=== PATIENT | female | born 1955 | race Native Hawaiian/Other Pacific Islander ===

== ENCOUNTER 2016-09-08 11:45 | Outpatient (CLI) | payer BC ==
[~2016-09-08 11:45] MED LIST: ASPIR-LOW81 MG OR; ATEN25TA21 PO; CELEBREX200 MG PO; CLOP75TA2 PO; FURO20TA67 PO; GLIP10TA55 PO; IRON325 MG OR; LAMICTAL25 MG OR; LINZESS290 MCG OR; LYRICA50 MG OR; METFORMIN ER1000 MG PO; NICOTINE TD; PANT40TA PO; SPIR25TA66 PO
== END 2016-09-08 19:19 | disposition home or self-care (01) ==
LOC: RAD 11:45
DX: M25.562 Pain in left knee (principal)

== ENCOUNTER 2016-11-17 12:40 | Emergency (ER) | payer BC ==
[~2016-11-17] VITALS: Ht 167.6 cm; Wt 111.6 kg
[2016-11-17 13:00] VITALS: BP 138/75; TEMP 98
[2016-11-17] MEDS ORDERED: HUMALOG KWI100 MG/ML SC (13:51)
[2016-11-17] MEDS ORDERED: LANTUS100 MG/ML SC (13:51)
[2016-11-17 13:52] LABS: PLATELET COUNT 194 K/uL (152-353)
[2016-11-17] MEDS ORDERED: CETI10TA PO (13:52)
[2016-11-17] MEDS ORDERED: ONDA4TAB3 PO (13:52)
[2016-11-17] MEDS ORDERED: LACTSYP31 PO (13:53)
[2016-11-17] MEDS ORDERED: VITAMIN D31000 UNIT OR (13:53)
[2016-11-17] MEDS ORDERED: XIFAXAN550 MG OR (13:54)
[2016-11-17] MEDS ORDERED: NADOLOL20 MG OR (13:54)
[2016-11-17 14:05] LABS: PARTIAL THROMBOPLASTIN TIME 27.5 SECONDS (24.5-33.6)
[2016-11-17 14:07] LABS: POTASSIUM 3.9 mmol/L (3.6-5.2); SODIUM 130 mmol/L (136-145)
== END 2016-11-17 17:36 | disposition home or self-care (01) ==
LOC: ED 12:40 → MED/SURG 16:32 → ED 16:32
PROVIDERS: Specialist
DX: R07.89 Other chest pain (principal); K74.60 Unspecified cirrhosis of liver; I25.10 Atherosclerotic heart disease of native coronary artery without angina pectoris
CPT/HCPCS: 36415; 80053; 82140; 82550; 84484; 85027; 85610; 85730; 93005; 99284; Q9963

== ENCOUNTER 2016-11-17 17:41 | Observation (INO) | payer BC ==
[~2016-11-17] VITALS: Ht 167.6 cm; Wt 111.6 kg
[~2016-11-17 17:41] MED LIST changes: +CETI10TA PO; +HUMALOG KWI100 MG/ML SC; +LACTSYP31 PO; +LANTUS100 MG/ML SC; +NADOLOL20 MG OR; +ONDA4TAB3 PO; +VITAMIN D31000 UNIT OR; +XIFAXAN550 MG OR
[2016-11-18 03:22] VITALS: BP 118/50; TEMP 98.1; Ht 167.6 cm; Wt 111.6 kg
[2016-11-18 04:00] VITALS: BP 96/55; TEMP 97.3
[2016-11-18 08:00] VITALS: BP 123/57; TEMP 97.8
--- NOTE | 2016-11-18 10:05 | NUR ---
9231 PT DEMANDED FOR IV HL TO BE TAKEN OUT AT THIS TIME. PT STATED IT HAD HURT HER ALL NIGHT. SMALL BRUISE NOTED AT INSERTION SITE. IV REMOVED AND ROUTINE SITE CARE GIVEN. WILL RESTART AT LATER TIME
[2016-11-18 12:00] VITALS: BP 118/70; TEMP 97.9
[2016-11-18 16:00] VITALS: BP 110/68; TEMP 98.3
[2016-11-18 20:00] VITALS: BP 115/58; TEMP 97.9
--- NOTE | 2016-11-18 22:34 | NUR ---
PT STATED SHE FELT IF SHE NEEDED HER BLOOD SUGAR CHECKED. FSBS 86. GIVEN ORANGE JUICE AND CRACKERS DUE TO PT BEING HYPOGLYCEMIC TODAY.
[2016-11-19] VITALS: BP 113/57; TEMP 97.6
[2016-11-19 04:00] VITALS: BP 103/60; TEMP 97.5
[2016-11-19 08:00] VITALS: BP 105/69; TEMP 98
[2016-11-19 08:14] LABS: PLATELET COUNT 149 K/uL (152-353)
[2016-11-19 08:35] LABS: POTASSIUM 3.9 mmol/L (3.6-5.2); SODIUM 129 mmol/L (136-145)
--- NOTE | 2016-11-19 11:53 | NUR ---
PT LANTUS PEN EDUCATIONS COMPLETED WITH DEMONSTRATION PROVIDED AND RETURN DEMONSTRATION FROM PATIENT. INFORMED PT THAT HER DOSE WOULD BE 10 UNITS AND PT DEMONSTRATED ABILITY TO SELECT DOSE.
== END 2016-11-19 12:00 | disposition home or self-care (01) ==
LOC: MED/SURG 17:41
PROVIDERS: ADMIT Family Medicine
DX: R07.89 Other chest pain (principal); K72.90 Hepatic failure, unspecified without coma; I69.90 Unspecified sequelae of unspecified cerebrovascular disease; I10 Essential (primary) hypertension; E13.43 Other specified diabetes mellitus with diabetic autonomic (poly)neuropathy
CPT/HCPCS: 36415; 80053; 82140; 82550; 83735; 84484; 85027; 85610; 85730; 93005; 99220; 99284; G0378; G0379; Q9963

== ENCOUNTER 2016-12-29 15:32 | Outpatient (CLI) | payer BC | END 2016-12-29 19:11 | disposition home or self-care (01) | LOC: RAD 15:32 | DX: M79.671 Pain in right foot (principal) ==

== ENCOUNTER 2017-04-27 18:43 | Emergency (ER) | payer BC | END 2017-04-27 20:13 | disposition home or self-care (01) | LOC: ED 18:43 | DX: R23.3 Spontaneous ecchymoses (principal) | CPT/HCPCS: 99281 ==

== ENCOUNTER 2017-08-03 14:52 | Outpatient (CLI) | payer BC | END 2017-08-03 15:55 | disposition home or self-care (01) | LOC: RAD 14:52 | DX: S60.222D Contusion of left hand, subsequent encounter (principal) ==

== ENCOUNTER 2017-10-03 16:00 | Observation (INO) | payer BC ==
[~2017-10-03] VITALS: Ht 167.6 cm; Wt 115.8 kg
--- NOTE | 2017-10-03 16:15 | NUR ---
PATIENT ARRIVED VIA WHEELCHAIR TO ROOM.
[2017-10-03 17:27] LABS: PLATELET COUNT 139 K/uL (152-353)
[2017-10-03 17:36] LABS: PARTIAL THROMBOPLASTIN TIME 29.4 SECONDS (24.5-33.6)
[2017-10-03 17:38] LABS: POTASSIUM 3.9 mmol/L (3.6-5.2)
[2017-10-03 18:31] VITALS: BP 103/67; TEMP 98.7; Ht 167.6 cm; Wt 115.8 kg
[2017-10-03 20:00] VITALS: BP 115/54; TEMP 98.3
[2017-10-04] VITALS: BP 98/46; TEMP 98.3
[2017-10-04 01:26] LABS: PLATELET COUNT 122 K/uL (152-353)
[2017-10-04 04:00] VITALS: BP 105/51; TEMP 97.9
[2017-10-04 06:05] LABS: POTASSIUM 3.4 mmol/L (3.6-5.2)
--- NOTE | 2017-10-04 06:37 | NUR ---
10/04/17 0630 RESTING ON RIGHT SIDE RESP EVEN NONLABORED NAD NOTED.CC
[2017-10-04 08:00] VITALS: BP 157/46; TEMP 98.4
[2017-10-04 12:22] VITALS: BP 113/50; TEMP 98.3
[2017-10-04 16:00] VITALS: BP 128/50; TEMP 98.6
[2017-10-04 20:00] VITALS: BP 117/59; TEMP 98.7
[2017-10-05] VITALS: BP 93/43; TEMP 97.8
[2017-10-05 04:00] VITALS: BP 119/55; TEMP 98.4
[2017-10-05 06:29] LABS: PLATELET COUNT 100 K/uL (152-353)
[2017-10-05 06:44] LABS: POTASSIUM 3.6 mmol/L (3.6-5.2)
[2017-10-05 08:00] VITALS: BP 123/52; TEMP 98.1
[2017-10-05 08:12] LABS: PARTIAL THROMBOPLASTIN TIME 30.3 SECONDS (24.5-33.6)
[2017-10-05 12:00] VITALS: BP 134/66; TEMP 98.3
--- NOTE | 2017-10-05 13:26 | NUR ---
20G IV TO RIGHT HAND D/C AT THIS TIME WITH TIP INTACT. DISCHARGE INSTRUCTIONS WERE GIVEN TO PT AND PT VERBALIZED UNDERSTANDING. PT AWAITING RIDE AT THIS TIME.
--- NOTE | 2017-10-05 13:45 | NUR ---
PT D/C VIA WHEELCHAIR AT THIS TIME
== END 2017-10-05 13:34 | disposition home or self-care (01) ==
LOC: MED/SURG 16:00
PROVIDERS: ADMIT Family Medicine
DX: E86.0 Dehydration (principal); R42 Dizziness and giddiness
CPT/HCPCS: 36415; 80053; 82550; 82948; 83880; 84484; 85027; 85610; 85730; 93005; 96365; 96366; 96372; 99220; G0378; G0379; J1650; J1885

== ENCOUNTER 2018-04-03 09:46 | Outpatient (CLI) | payer BC | END 2018-04-03 19:59 | disposition home or self-care (01) | LOC: US 09:46 | DX: K74.69 Other cirrhosis of liver (principal) ==

== ENCOUNTER 2018-05-17 14:31 | Outpatient (CLI) | payer BC | END 2018-05-17 20:57 | disposition home or self-care (01) | LOC: RAD 14:31 | DX: M25.462 Effusion, left knee (principal) ==

== ENCOUNTER 2018-09-18 09:45 | Outpatient (CLI) | payer BC | END 2018-09-18 19:07 | disposition home or self-care (01) | LOC: RAD 09:45 | DX: Z12.31 Encounter for screening mammogram for malignant neoplasm of breast (principal); M81.0 Age-related osteoporosis without current pathological fracture ==

== ENCOUNTER 2018-10-30 09:55 | Outpatient (CLI) | payer BC | END 2018-10-30 19:37 | disposition home or self-care (01) | LOC: RESP 09:55 | DX: G56.03 Carpal tunnel syndrome, bilateral upper limbs (principal); G56.20 Lesion of ulnar nerve, unspecified upper limb | CPT/HCPCS: 95861; 95911 ==

== ENCOUNTER 2019-07-09 13:45 | Observation (INO) | payer OTHER, BC ==
[~2019-07-09] VITALS: Ht 170.2 cm; Wt 108.7 kg
[2019-07-09] VITALS (8 sets, daily range): BP systolic 105–117; BP diastolic 46–73; TEMP 96.6–97.9
[2019-07-09 14:13] LABS: PLATELET COUNT 144 K/uL (152-353)
[2019-07-09] MEDS ORDERED: PROPRANOLOL20 MG PO (14:17)
[2019-07-09] MEDS ORDERED: HYDROXYZINE HYD25 MG PO (14:20)
[2019-07-09] MEDS ORDERED: LEXAPRO10 MG PO (14:23)
[2019-07-09 14:25] LABS: POTASSIUM 3.7 mmol/L (3.6-5.2)
[2019-07-10] VITALS (7 sets, daily range): BP systolic 101–133; BP diastolic 41–96; TEMP 97.7–98.8; Ht 170.2 cm; Wt 108.7 kg
[2019-07-10] MEDS ORDERED: NEURONTIN 100M100 MG PO (02:19)
[2019-07-10] MEDS ORDERED: FURO20TA67 PO (02:24)
[2019-07-10] MEDS ORDERED: ESCI10TA PO (02:26)
[2019-07-10] MEDS ORDERED: CAROSPIR25 MG/5 ML PO (02:27)
[2019-07-10] MEDS ORDERED: HYDROXYZINE HYD25 MG PO (02:28)
[2019-07-10] MEDS ORDERED: METFORMIN ER1000 MG PO (02:29)
[2019-07-10] MEDS ORDERED: XIFAXAN550 MG PO (02:30)
[2019-07-10] MEDS ORDERED: CLOPIDOGREL75 MG PO (02:31)
[2019-07-10] MEDS ORDERED: PANTOPRAZOLE 40MG TA PO (02:32)
[2019-07-10] MEDS ORDERED: ONDANSETRON4 M2 PO (02:35)
[2019-07-10] MEDS ORDERED: PROPRANOLOL20 MG PO (02:37)
[2019-07-10] MEDS ORDERED: GLIP10TA55 PO (02:37)
[2019-07-10] MEDS ORDERED: D 10001000 UNIT PO (02:38)
[2019-07-10] MEDS ORDERED: FISH PO (02:42)
[2019-07-10] MEDS ORDERED: IRON45 MG PO (02:43)
[2019-07-10 04:47] LABS: PLATELET COUNT 144 K/uL (152-353)
[2019-07-10 05:38] LABS: POTASSIUM 3.3 mmol/L (3.6-5.2)
[2019-07-11] VITALS: BP 130/45; TEMP 97.6
[2019-07-11 04:00] VITALS: BP 132/53; TEMP 97.8
[2019-07-11 04:54] LABS: PLATELET COUNT 120 K/uL (152-353)
[2019-07-11 05:35] LABS: POTASSIUM 3.7 mmol/L (3.6-5.2)
[2019-07-11 08:00] VITALS: BP 129/53; TEMP 97.6
[2019-07-11 12:00] VITALS: BP 129/51; TEMP 97.6
== END 2019-07-11 11:21 | disposition home or self-care (01) ==
LOC: ED 13:45 → MED/SURG 15:55
PROVIDERS: Family Medicine; ADMIT Family Medicine
DX: N39.0 Urinary tract infection, site not specified (principal); E72.20 Disorder of urea cycle metabolism, unspecified; K72.90 Hepatic failure, unspecified without coma; E11.9 Type 2 diabetes mellitus without complications; E66.8 Other obesity
CPT/HCPCS: 36415; 51702; 80053; 81000; 82140; 82150; 82948; 83690; 83880; 85027; 87077; 87086; 87088; 87186; 96365; 96367; 96375; 99220; 99284; G0378; J0696; J1885

== ENCOUNTER 2019-08-27 09:44 | Outpatient (CLI) | payer OTHER, BC ==
[~2019-08-27 09:44] MED LIST changes: +CAROSPIR25 MG/5 ML PO; +CLOPIDOGREL75 MG PO; +D 10001000 UNIT PO; +ESCI10TA PO; +FISH PO; +HYDROXYZINE HYD25 MG PO; +IRON45 MG PO; +LEXAPRO10 MG PO; +NEURONTIN 100M100 MG PO; +ONDANSETRON4 M2 PO; +PANTOPRAZOLE 40MG TA PO; +PROPRANOLOL20 MG PO; +XIFAXAN550 MG PO
== END 2019-08-27 13:00 | disposition home or self-care (01) ==
LOC: US 09:44
DX: K74.69 Other cirrhosis of liver (principal)

== ENCOUNTER 2020-04-08 12:39 | Outpatient (CLI) | payer OTHER, BC | END 2020-04-08 21:30 | disposition home or self-care (01) | LOC: RAD 12:39 | DX: R05 Cough (principal) ==

== ENCOUNTER 2020-09-23 14:53 | Observation (INO) | payer OTHER, BC ==
[~2020-09-23] VITALS: Ht 172.7 cm; Wt 120.7 kg
[2020-09-23 16:18] LABS: PLATELET COUNT 97 K/uL (152-353)
[2020-09-23 16:21] VITALS: BP 93/51; TEMP 98; Ht 172.7 cm; Wt 120.7 kg
[2020-09-23 16:33] LABS: POTASSIUM 3.1 mmol/L (3.6-5.2); SODIUM 137 mmol/L (136-145)
[2020-09-23 20:00] VITALS: BP 117/52; TEMP 97.8
[2020-09-24] VITALS: BP 122/47; TEMP 98.2
[2020-09-24 03:48] VITALS: BP 139/58; TEMP 98
[2020-09-24 05:50] LABS: POTASSIUM 3.2 mmol/L (3.6-5.2)
[2020-09-24 05:51] LABS: PLATELET COUNT 82 K/uL (152-353)
[2020-09-24 08:00] VITALS: BP 124/62; TEMP 98.1
[2020-09-24 12:00] VITALS: BP 136/50; TEMP 98.3
[2020-09-24 16:00] VITALS: BP 117/55; TEMP 97.8
[2020-09-24 20:00] VITALS: BP 118/64; TEMP 98
[2020-09-25 00:10] VITALS: BP 107/85; TEMP 97.7
[2020-09-25 04:26] VITALS: BP 105/47; TEMP 97.9
[2020-09-25 05:50] LABS: POTASSIUM 3.9 mmol/L (3.6-5.2)
[2020-09-25 06:29] LABS: PLATELET COUNT 86 K/uL (152-353)
[2020-09-25 08:00] VITALS: BP 116/41; TEMP 97.8
[2020-09-25 12:00] VITALS: BP 115/49; TEMP 97.9
[2020-09-25 16:00] VITALS: BP 120/45; TEMP 97.8
[2020-09-25 20:00] VITALS: BP 112/60; TEMP 98.1
[2020-09-26] VITALS: BP 109/54; TEMP 98
[2020-09-26 04:00] VITALS: BP 120/56; TEMP 97.9
[2020-09-26 05:47] LABS: PLATELET COUNT 85 K/uL (152-353)
[2020-09-26 06:13] LABS: POTASSIUM 3.9 mmol/L (3.6-5.2)
[2020-09-26 07:38] VITALS: BP 108/51; TEMP 97.8
[2020-09-26 11:30] VITALS: BP 110/60; TEMP 98.4
[2020-09-26 16:00] VITALS: BP 125/54; TEMP 98.2
== END 2020-09-26 17:54 | disposition home or self-care (01) ==
LOC: MED/SURG 14:53
PROVIDERS: ADMIT Family Medicine; ATTEND Family Medicine
DX: K72.90 Hepatic failure, unspecified without coma (principal); R11.15 Cyclical vomiting syndrome unrelated to migraine; R41.82 Altered mental status, unspecified; E72.20 Disorder of urea cycle metabolism, unspecified; I25.10 Atherosclerotic heart disease of native coronary artery without angina pectoris; I10 Essential (primary) hypertension; F03.90 Unspecified dementia, unspecified severity, without behavioral disturbance, psychotic disturbance, mood disturbance, and anxiety; E66.8 Other obesity; E11.65 Type 2 diabetes mellitus with hyperglycemia
CPT/HCPCS: 36415; 80053; 81000; 82140; 82150; 82248; 82550; 82553; 82948; 83690; 83735; 84100; 84484; 85027; 85379; 86140; 87040; 87077; 87086; 87088; 87185; 87186; 87205; 93005; 96365; 99220; G0378; G0379; J1815; J3475

== ENCOUNTER 2021-02-11 11:25 | Emergency (ER) | payer OTHER, BC ==
[2021-02-22 06:28] LABS: PARTIAL THROMBOPLASTIN TIME 30.2 SECONDS (24.5-33.6)
[2021-02-22 06:29] LABS: PLATELET COUNT 79 K/uL (152-353)
[2021-02-22 06:30] LABS: POTASSIUM 3.5 mmol/L (3.6-5.2); SODIUM 143 mmol/L (136-145)
== END 2021-02-11 18:40 | disposition home or self-care (01) ==
LOC: ED 11:25
PROVIDERS: Emergency Medicine
DX: F03.90 Unspecified dementia, unspecified severity, without behavioral disturbance, psychotic disturbance, mood disturbance, and anxiety (principal); F05 Delirium due to known physiological condition; N39.0 Urinary tract infection, site not specified; K74.69 Other cirrhosis of liver; E87.6 Hypokalemia
CPT/HCPCS: 36415; 36600; 80053; 80307; 80320; 81000; 82140; 82150; 82805; 83605; 83690; 84484; 85027; 85610; 85730; 87077; 87086; 87088; 87186; 93005; 96365; 99284; J0696

== ENCOUNTER 2021-03-02 12:47 | Outpatient (CLI) | payer OTHER, BC | END 2021-03-02 14:00 | disposition home or self-care (01) | LOC: CT 12:47 | PROVIDERS: ATTEND Nurse Practitioner Family | DX: S39.81XA Other specified injuries of abdomen, initial encounter (principal); R07.81 Pleurodynia | CPT/HCPCS: Q9963 ==

== ENCOUNTER 2021-03-18 10:46 | Outpatient (CLI) | payer OTHER, BC | END 2021-03-18 22:05 | disposition home or self-care (01) | LOC: RAD 10:46 | PROVIDERS: ATTEND Nurse Practitioner Family | DX: R07.81 Pleurodynia (principal) ==

== ENCOUNTER 2021-04-27 15:04 | Outpatient (CLI) | payer OTHER, BC ==
[2021-04-27 16:34] LABS: POTASSIUM 3.7 mmol/L (3.6-5.2); SODIUM 136 mmol/L (136-145)
[2021-04-27 16:36] LABS: PLATELET COUNT 84 K/uL (152-353)
== END 2021-04-27 20:44 | disposition home or self-care (01) ==
LOC: LABW 15:04
PROVIDERS: ATTEND Nurse Practitioner Family
DX: Z03.818 Encounter for observation for suspected exposure to other biological agents ruled out (principal); I50.9 Heart failure, unspecified
CPT/HCPCS: 80053; 82550; 82553; 82728; 83880; 84484; 85027; 85379; 86140

== ENCOUNTER 2021-04-28 12:46 | Outpatient (CLI) | payer OTHER, BC ==
[~2021-04-28] VITALS: Ht 170.2 cm; Wt 102.1 kg
== END 2021-04-28 20:38 | disposition home or self-care (01) ==
LOC: INF 12:46
PROVIDERS: ATTEND Family Medicine
DX: Z23 Encounter for immunization (principal); U07.1 COVID-19
CPT/HCPCS: 96365; M0244

== ENCOUNTER 2021-06-28 09:36 | Outpatient (CLI) | payer OTHER, BC | END 2021-06-28 20:03 | disposition home or self-care (01) | LOC: US 09:36 | PROVIDERS: ATTEND Internal Medicine Gastroenterology | DX: K74.69 Other cirrhosis of liver (principal) ==

== ENCOUNTER 2021-07-19 08:35 | Outpatient (CLI) | payer OTHER, BC | END 2021-07-19 19:47 | disposition home or self-care (01) | LOC: MAMMO 08:35 | PROVIDERS: ATTEND Family Medicine | DX: Z12.31 Encounter for screening mammogram for malignant neoplasm of breast (principal) ==

== ENCOUNTER 2021-10-27 13:05 | Outpatient (CLI) | payer BC | END 2021-10-27 19:40 | disposition home or self-care (01) | LOC: RAD 13:05 | PROVIDERS: ATTEND Nurse Practitioner Primary Care | DX: R07.81 Pleurodynia (principal); M25.512 Pain in left shoulder ==

== ENCOUNTER 2022-02-01 10:54 | Observation (INO) | payer OTHER ==
[2022-02-01] VITALS (11 sets, daily range): BP systolic 86–111; BP diastolic 35–56; TEMP 97.5–98.3; Ht 170.2 cm; Wt 90.4 kg
[~2022-02-01] VITALS: Ht 170.2 cm; Wt 90.4 kg
[~2022-02-01 10:54] MED LIST changes: -SPIR25TA66 PO; +SPIRONOLACT25 MG PO
[2022-02-01 12:16] LABS: POTASSIUM 3.9 mmol/L (3.6-5.2)
[2022-02-01 12:20] LABS: PLATELET COUNT 95 K/uL (152-353)
[2022-02-01 17:14] LABS: PLATELET COUNT 91 K/uL (152-353)
[2022-02-01] MEDS ORDERED: ROSUVASTATIN CA20 MG PO (20:41)
[2022-02-01] MEDS ORDERED: DICL50TA PO (20:43)
[2022-02-01] MEDS ORDERED: ESCITALOPRAM5 MG PO (20:44)
[2022-02-01] MEDS ORDERED: LACTULOSE10 GM/151 PO (20:53)
[2022-02-01] MEDS ORDERED: TRAZODONE HYDRO50 MG PO (20:54)
[2022-02-02 04:00] VITALS: BP 122/62; TEMP 98.6
[2022-02-02] MEDS ORDERED: PANTOPRAZOLE SO40 M1 PO (04:41)
[2022-02-02] MEDS ORDERED: XIFAXAN550 MG PO (04:42)
[2022-02-02 04:48] LABS: PLATELET COUNT 86 K/uL (152-353)
[2022-02-02 05:24] LABS: POTASSIUM 4.4 mmol/L (3.6-5.2)
[2022-02-02 08:00] VITALS: BP 100/60; TEMP 98.3
[2022-02-02] MEDS ORDERED: BASAGLAR K100 UNIT/M SC (10:52)
[2022-02-02] MEDS ORDERED: GRALISE600 MG PO (10:53)
[2022-02-02] MEDS ORDERED: CHANTIX (10:55)
[2022-02-02] MEDS ORDERED: ASPIR-LOW81 MG PO (11:01)
[2022-02-02 12:00] VITALS: BP 110/80; TEMP 97.7
== END 2022-02-02 16:39 | disposition home or self-care (01) ==
LOC: ED 10:54 → MED/SURG 15:30
PROVIDERS: Emergency Medicine; ADMIT Family Medicine; ATTEND Family Medicine
DX: K74.69 Other cirrhosis of liver (principal); F60.2 Antisocial personality disorder; E13.43 Other specified diabetes mellitus with diabetic autonomic (poly)neuropathy; K21.9 Gastro-esophageal reflux disease without esophagitis; I69.90 Unspecified sequelae of unspecified cerebrovascular disease; E86.0 Dehydration; K64.8 Other hemorrhoids
CPT/HCPCS: 36415; 80053; 81000; 82140; 82272; 83735; 83880; 84100; 85027; 85610; 87015; 87045; 87324; 87449; 87635; 87899; 96360; 96361; 99220; 99284; G0378; J3475; J3490; U0003

== ENCOUNTER 2022-05-23 17:31 | Outpatient (CLI) | payer OTHER ==
[~2022-05-23] VITALS: Ht 170.2 cm; Wt 90.4 kg
[~2022-05-23 17:31] MED LIST changes: +ASPIR-LOW81 MG PO; +BASAGLAR K100 UNIT/M SC; +CHANTIX; +DICL50TA PO; +ESCITALOPRAM5 MG PO; +GRALISE600 MG PO; +LACTULOSE10 GM/151 PO; +PANTOPRAZOLE SO40 M1 PO; +ROSUVASTATIN CA20 MG PO; +TRAZODONE HYDRO50 MG PO
[2022-05-23 17:55] VITALS: BP 93/42; TEMP 97.8
[2022-05-23 17:58] LABS: PLATELET COUNT 99 K/uL (152-353)
[2022-05-23 18:01] LABS: POTASSIUM 3.6 mmol/L (3.6-5.2)
[2022-05-23 21:06] VITALS: BP 102/40; TEMP 97.7
== END 2022-05-23 19:33 | disposition home or self-care (01) ==
LOC: INF 17:31
PROVIDERS: Nurse Practitioner Family; ATTEND Family Medicine
DX: E86.0 Dehydration (principal)
CPT/HCPCS: 36415; 36591; 80053; 82140; 85027; 96360; 96361

== ENCOUNTER 2022-12-02 17:11 | Inpatient (IN) | payer OTHER ==
[2022-12-13 16:44] LABS: PLATELET COUNT 153 K/uL (152-353)
[2022-12-13 16:58] LABS: POTASSIUM 4.8 mmol/L (3.6-5.2)
== END 2022-12-19 14:08 | disposition still patient (30) ==
LOC: PAVB 17:11
PROVIDERS: ADMIT Family Medicine; ATTEND Family Medicine
DX: S72.145D Nondisplaced intertrochanteric fracture of left femur, subsequent encounter for closed fracture with routine healing (principal); M62.81 Muscle weakness (generalized); R26.2 Difficulty in walking, not elsewhere classified; R26.81 Unsteadiness on feet; Z74.1 Need for assistance with personal care
CPT/HCPCS: 36415; 80053; 81000; 82140; 85027; 87077; 87086; 87088; 87186

== ENCOUNTER 2022-12-03 07:56 | Outpatient (CLI) | payer OTHER | END 2022-12-03 19:07 | disposition home or self-care (01) | LOC: LAB 07:56 | PROVIDERS: ATTEND Family Medicine | DX: Z02.2 Encounter for examination for admission to residential institution (principal) | CPT/HCPCS: 87081 ==

== ENCOUNTER 2022-12-26 14:39 | Observation (INO) | payer OTHER ==
[~2022-12-26] VITALS: Ht 170.2 cm; Wt 92.2 kg
[2022-12-26 15:00] VITALS: BP 14/43; TEMP 97.3
[2022-12-26 16:09] LABS: PLATELET COUNT 147 K/uL (152-353)
[2022-12-26 16:20] LABS: POTASSIUM 3.8 mmol/L (3.6-5.2)
[2022-12-26 20:00] VITALS: BP 110/44; TEMP 97.6
[2022-12-26 22:01] VITALS: BP 103/52; TEMP 98.2; Ht 170.2 cm; Wt 92.2 kg
[2022-12-26 23:31] VITALS: BP 99/40; TEMP 98.3
[2022-12-27 03:44] VITALS: BP 100/40; TEMP 97.9
[2022-12-27 08:00] VITALS: BP 99/46; TEMP 97.7
== END 2022-12-27 10:54 ==
LOC: ED 14:39 → MED/SURG 17:44
PROVIDERS: ADMIT Emergency Medicine Emergency Medical Services; ATTEND Internal Medicine
DX: R07.89 Other chest pain (principal); E83.42 Hypomagnesemia; I11.0 Hypertensive heart disease with heart failure; I50.9 Heart failure, unspecified; Z86.73 Personal history of transient ischemic attack (TIA), and cerebral infarction without residual deficits; E11.65 Type 2 diabetes mellitus with hyperglycemia; Z87.891 Personal history of nicotine dependence
CPT/HCPCS: 80053; 82948; 83735; 84484; 85027; 85610; 93005; 96360; 96361; 96365; 96372; 99221; 99284; G0378; J3475

== ENCOUNTER 2023-03-01 09:25 | Observation (INO) | payer OTHER ==
[~2023-03-01] VITALS: Ht 170.2 cm; Wt 99.6 kg
[2023-03-01] VITALS (8 sets, daily range): BP systolic 104–129; BP diastolic 42–63; TEMP 98.2–98.7; Ht 170.2 cm; Wt 99.6 kg
[2023-03-01 09:50] LABS: PLATELET COUNT 126 K/uL (152-353)
[2023-03-01 09:58] LABS: POTASSIUM 4.6 mmol/L (3.6-5.2)
[2023-03-02 04:00] VITALS: BP 111/41; TEMP 99.1
[2023-03-02 06:07] LABS: PLATELET COUNT 114 K/uL (152-353)
[2023-03-02 06:19] LABS: POTASSIUM 3.8 mmol/L (3.6-5.2)
[2023-03-02 08:00] VITALS: BP 109/65; TEMP 98.6
[2023-03-02 12:00] VITALS: BP 133/59; TEMP 98.4
[2023-03-02 16:00] VITALS: BP 112/54; TEMP 98.7
[2023-03-02 20:00] VITALS: BP 124/52; TEMP 98.2
[2023-03-02 23:55] VITALS: BP 105/32; TEMP 98.5
[2023-03-03 03:33] VITALS: BP 125/73; TEMP 98.1
[2023-03-03 05:56] LABS: PLATELET COUNT 116 K/uL (152-353)
[2023-03-03 06:08] LABS: POTASSIUM 3.8 mmol/L (3.6-5.2)
[2023-03-03 08:00] VITALS: BP 109/42; TEMP 97.9
== END 2023-03-03 11:40 | disposition home or self-care (01) ==
LOC: ED 09:25 → MED/SURG 10:35
PROVIDERS: Family Medicine; ADMIT Nurse Practitioner Family; ATTEND Internal Medicine Endocrinology, Diabetes & Metabolism
DX: K76.82 Hepatic encephalopathy (principal); R41.82 Altered mental status, unspecified; E11.9 Type 2 diabetes mellitus without complications; J44.9 Chronic obstructive pulmonary disease, unspecified; K21.9 Gastro-esophageal reflux disease without esophagitis; I50.9 Heart failure, unspecified; Z86.73 Personal history of transient ischemic attack (TIA), and cerebral infarction without residual deficits; Z87.891 Personal history of nicotine dependence; I11.0 Hypertensive heart disease with heart failure; Z79.4 Long term (current) use of insulin
CPT/HCPCS: 36415; 80048; 80053; 81002; 82140; 82948; 83605; 85027; 96374; 99221; 99284; G0378; J2060